=== PATIENT | male | born 1945 | race Caucasian/White ===

== ENCOUNTER 2017-02-16 20:12 | Emergency (ER) | payer MEDICARE ==
--- NOTE | 2017-02-16 20:31 | UC ---
Throat Pain/Nasal Uzair HPI - HPI Summary HPI Summary: 71 y/o male PMHX COPD presents to the urgent care c/o sore throat, nasal congestion, productive cough with mild. SOB since this morning. Diagnosed with Hairy Cell Leukemia 11/[address] Hastings. Pt denies fever, chest pain , N/V/D. Urinary symptoms or abdominal pain. - History of Current Complaint Chief Complaint: UCRespiratory Stated Complaint: SORE THROAT, HEAD CONGESTION Time Seen by Provider: 02/16/17 20:30 Hx Obtained From: Patient Onset/Duration: Gradual Onset, Lasting Hours - since this morning, Still Present Pain Intensity: 5 Pain Scale Used: 0-10 Numeric Cough: Productive - green phlegm Associated Signs & Symptoms: Positive: Dysphagia, Sinus Discomfort, Nasal Discharge - brown green nasal discharge. Negative: Fever - Epiglottits Risk Factors Epiglottis Risk Factors: Negative - Allergies/Home Medications Allergies/Adverse Reactions: Allergies Allergy/AdvReac Type Severity Reaction Status Date / Time No Known Allergies Allergy Verified 02/16/17 20:24 PMH/Surg Hx/FS Hx/Imm Hx Previously Healthy: Yes Respiratory History: COPD, Pneumonia Other Cancer History: Hairy cell Leukemia - Surgical History Surgical History: Yes Surgery Procedure, Year, and Place: hernia. left knee - Family History Known Family History: Positive: Cardiac Disease - Social History Occupation: Retired Lives: With Family Alcohol Use: None Substance Use Type: None Smoking Status (MU): Former Smoker Review of Systems Constitutional: Negative Skin: Negative Eyes: Negative ENT: Sore Throat, Nasal Discharge, Sinus Congestion - green phlegm Respiratory: Shortness Of Breath, Cough - productive green phlegm Cardiovascular: Negative Gastrointestinal: Negative Genitourinary: Negative Motor: Negative Neurovascular: Negative Musculoskeletal: Negative Neurological: Negative Psychological: Negative All Other Systems Reviewed And Are Negative: Yes Physical Exam Triage Information Reviewed: Yes Appearance: Well-Appearing, No Pain Distress, Well-Nourished Vital Signs: Initial Vital Signs Temp 99.4 F 02/16/17 20:15 Pulse 123 02/16/17 20:15 Resp 28 02/16/17 20:15 BP 139/82 02/16/17 20:15 Pulse Ox 97 02/16/17 20:15 Vital Signs Reviewed: Yes Eye Exam: Normal Eyes: Positive: Conjunctiva Clear ENT: Positive: Normal ENT inspection, Hearing grossly normal, Pharyngeal erythema - mild, no exudate,, Nasal drainage - edamatous mucosa, no erythema. No sinus tenderness, TMs normal. Negative: Tonsillar swelling, Tonsillar exudate Dental Exam: Normal Neck exam: Normal Neck: Positive: Supple, Nontender, No Lymphadenopathy Respiratory: Positive: Chest non-tender, No respiratory distress, Decreased breath sounds - when coughing, Wheezing - Left postior lung with wheezing Cardiovascular Exam: Normal Cardiovascular: Positive: RRR, No Murmur, Pulses Normal, Brisk Capillary Refill Abdominal Exam: Normal Abdomen Description: Positive: Nontender, No Organomegaly, Soft Bowel Sounds: Positive: Present Musculoskeletal Exam: Normal Musculoskeletal: Positive: Strength Intact, ROM Intact, No Edema Neurological Exam: Normal Psychological Exam: Normal Skin Exam: Normal Throat Pain/Nasal Course/Dx - Course Course Of Treatment: 71 y/o male PMHX COPD presents to the urgent care c/o sore throat, nasal congestion, productive cough with mild. SOB since this morning. Diagnosed with Hairy Cell Lukemia 11/[address] Hastings. Pt denies fever, chest pain, N/V/D. Urinary symptoms or abdominal pain. Hx obtained. Rapid strep ordere, Result: negative. Pt w/ PMHX of COPD smoking since age 11 y /o, stopped smoking 2 years ago. Hoever daughters at home still smoking. Today presenting with A COPD exacerbation. Pt given Prednisone PO and Duoneb Tx. Pt tolerated well treatment and SOB and wheezing improved Pt D/D home with Rx Prednisone taper doese, Bactrin PO and Duoneb treatmetn. Pt advised to f/u with Dr Hastings PCP in 2-3 daysfor further management. Pt understood and agreed. Pt left the clinic A&Ox3 and ambulating. - Differential Dx/Diagnosis Differential Diagnosis/HQI/PQRI: Laryngitis - COPD exacerbation, Bronchitis, pneumonia, Pharyngitis, URI, Other Provider Diagnoses: 1- COPD exacerbation. 2-Viral pharyngitis Discharge - Discharge Plan Condition: Stable Disposition: HOME Prescriptions: Albuterol/Ipratropium NEB.MARY JANE* [Duoneb (Albuterol 2.5 MG/Ipratropium 0.5 MG)] 1 neb INH Q4H #1 box Sulfamethox/Trimethoprim DS* [Bactrim DS 800/160 TAB*] 1 tab PO BID #19 tab predniSONE TAB* [Deltasone TAB*] 20 mg PO DAILY #8 tab Patient Education Materials: COPD (Chronic Obstructive Pulmonary Disease) (ED) Referrals: Claudio Hastings MD [Primary Care Provider] - 3 Days Additional Instructions: 1-Please take full course of antibiotic to avoid resistance. 2-Take Prednisone PO as directed continue using the Duoneb inhaler 3- If symptoms do not improve or worsen or your develop SOB with fever and severe wheezing please go immediately to the ER further evaluation and treatment. 4- F/u with your PCP Dr Hastings in 2-3 days for further management on your COPD
[2017-02-16] MEDS ORDERED: predniSONE TAB* 20 MG PO ONE (20:49)
[2017-02-16] MEDS ORDERED: Albuterol/Ipratropium NEB.SOL* Albuterol 2.5 MG/Ipratropium 0.5 MG 3 ML INH ONE (20:49)
[2017-02-16] MEDS ORDERED: Albuterol 2.5 MG/3 ML NEB.SOL* (0.083%) INH ONE (20:52)
[2017-02-16] MEDS ORDERED: Ipratropium 0.5MG/2.5ML NEB* 0.5 MG/2.5 ML NEB.SOLN INH ONE (20:53)
[2017-02-16] MEDS ORDERED: Sulfamethox/Trimethoprim DS 800/160* TAB PO ONE (21:09)
== END 2017-02-16 21:44 | disposition home or self-care (01) ==
LOC: UCCORT 20:12
DX: J44.1 Chronic obstructive pulmonary disease with (acute) exacerbation (principal); J02.8 Acute pharyngitis due to other specified organisms; C91.40 Hairy cell leukemia not having achieved remission; Z87.891 Personal history of nicotine dependence
CPT/HCPCS: 87651; 99203; A9270-GY; G0463; J7512; J7644